=== PATIENT | male | born 1990 | race Caucasian/White ===

== ENCOUNTER 2016-07-16 11:13 | Day surgery (SDC) | payer OTHER ==
[~2016-07-16] VITALS: Ht 162.6 cm; Wt 74.8 kg
[~2016-07-16 11:13] MED LIST: 0.9% Sodium Chloride 1,000 ML IV PRN; CHOL10008 PO; MULT1CAP33 PO; Sodium Chloride LOK Flush 10 mL Syringe IV PRN; fentaNYL-PF 50 mCg/mL 2 mL Inj IVPUSH PRN
[2016-07-16 12:06] VITALS: BP 123/59; PULSE 63; RESP 16; O2SAT 100
[2016-07-16 13:15] VITALS: BP 121/65; PULSE 69; RESP 16; O2SAT 99
--- NOTE | 2016-07-16 13:15 | PCM.ENDCOL ---
Colonoscopy Date of Service: Jul 16, 2016 Physician Severo Porras MD Pre Procedure Diagnosis: Bright red blood per rectum Post Procedure Dx & Findings: Polyp hemorrhoids Procedure Colonoscopy Prep adequate Withdrawal time 9 minutes After unremarkable rectal examination the Olympus video colonoscope was inserted patient's anal canal and was advanced to cecum. Landmarks were identified including the ileocecal valve and appendiceal orifice. Scope was withdrawn systematically. Visualized colonic mucosa showed healthy shiny mucosa with normal healthy-appearing vasculature. The patient had two 1 mm polyps in the descending colon which were both removed completely using cold forceps. In the rectum retroflexion was done which showed hemorrhoids. Anal canal was inspected carefully on the way out and hemorrhoids noted. Impression Polyp 2 status post complete removal Hemorrhoids Recommendation Repeat colonoscopy in 5 years Follow-up with PA in the GI clinic. Presedation Assessment Risks and Benefits Informed consent was obtained from the patient after all risks and benefits including but not limited to drug reaction, infection, pain, bleeding, perforation, as well as alternatives were discussed. Patient monitoring Continuous pulse oximetry, cardiac monitoring, blood pressure monitoring, IV access, and oxygen at 2L per nasal cannula. Periprocedural Fentanyl: Fentanyl 100mcg Incrementally Midazolam: Midazolam 5mg Incrementally Complications There were no periprocedural complications identified. Post Procedure Plan Post Procedure Recommendations 1. Restrict activities today. 2. Resume normal activities in the morning. 3. Resume medications. 4. Patient informed of normal post procedure side effects as bloating, drowsiness, blood streaking in the stool. 5. average risk CRCS. If colon polyps come back as: -Hyperplastic- can repeat colonoscopy in 10 years -Tubular adenoma- repeat colonoscopy in 5 years -Tubulovillous/villous adenoma- repeat colonoscopy in 3 years -If any dysplasia- return to clinic as soon as possible 6. Please don't hesitate to call me with any questions. Severo Porras MD Jul 16, 2016 13:15
[2016-07-16 13:25] VITALS: BP 107/44; PULSE 55; RESP 16; O2SAT 96
[2016-07-16 13:35] VITALS: BP 107/44; PULSE 66; O2SAT 90
[2016-07-16 13:42] VITALS: BP 124/61; PULSE 64; O2SAT 100
--- NOTE | 2016-07-18 14:42 | PATH ---
SURGICAL PATHOLOGY Attending Physician:Severo Porras M.D. CASE STATUS: Signed Out PATIENT NAME: RAFAEL JONES PID: [id number] : 1990 DATE COLLECTED:07/16/2016 20:11 SPECIMEN: Colon, Biopsy CLINICAL HISTORY: BLOOD IN STOOL 1). DESCENDING COLON POLYPS X2 FINAL DIAGNOSIS: Descending Colon Polyps: Tubular adenoma. Benign lymphoid nodule. ICD10 D12.6 GROSS DESCRIPTION: The specimen is received in one formalin filled container labeled with the patient's name, sublabeled "descending colon polyps X2" and consists of 2 portions of tissue which aggregate to 0.4 x 0.4 x 0.3 CM. The specimen is entirely submitted in one cassette. 07/16/2016 [facility] ICD-9 CODES: CPT CODES: 1: 55956 Electronically Signed Out Joseph Francis MD [facility] Pathology [facility], [place] [address] Technical component performed at [facility], [address] [place] [address] [address], [place], [address]
== END 2016-07-16 23:59 | disposition home or self-care (01) ==
LOC: END 11:13
PROVIDERS: ATTEND Internal Medicine
DX: D12.4 Benign neoplasm of descending colon (principal); K64.8 Other hemorrhoids
CPT/HCPCS: 45380; 99153; G0500; J2250; J3010; J7030